=== PATIENT | male | born 1940 | race Caucasian/White ===

== ENCOUNTER 2021-08-19 11:18 | Outpatient (CLI) | payer MEDICARE ==
[2021-08-19 15:05] LABS: Bacteria/HPF None Seen HPF (None Seen); Bilirubin Negative (Negative); Blood, Urine Negative (Negative); Clarity Clear (Clear); Glucose, Urine (Dipstick) Normal (Negative); Ketone, Urine Negative (Negative); Leukocyte Negative Leu/uL (Negative); Nitrite Negative (Negative); Protein, Urine (Dipstick) 30 mg/dL (Neg-Trace); RBC/HPF 0-3 HPF (0-3); Specific Gravity, Urine 1.024 (1.002-1.036); Squamous Epithelial 0-3 HPF (0-3); WBC/HPF 0-3 HPF (0-3); pH, Urine 6.5 (5.0-9.0)
== END 2021-08-19 11:19 | disposition home or self-care (01) ==
LOC: SCSRAD 11:18
PROVIDERS: ATTEND Internal Medicine Gastroenterology
DX: R10.9 Unspecified abdominal pain (principal); R94.5 Abnormal results of liver function studies; M48.061 Spinal stenosis, lumbar region without neurogenic claudication; C49.A2 Gastrointestinal stromal tumor of stomach; Q79.1 Other congenital malformations of diaphragm
CPT/HCPCS: 74019; 81001; 87086